=== PATIENT | male | born 1995 | race Caucasian/White ===

== ENCOUNTER 2025-06-13 18:00 | Outpatient (RCR) | payer OTHER, SELFPAY ==
--- NOTE | 2025-03-14 12:52 | HP.OTEVAL ---
Patient's Visit Information Visit Information Visit Information: SASKIA NUNES is a 29 year old M, referred to Occupational Therapy by JUSTINO WINTER, with a diagnosis of Left distal radius fracture. Date of Evaluation: 03/14/25 Occupational Therapist: Mikki Duvall Subjective Subjective: This 29 year old male arrives with dx of L distal radius fracture with surgical intervention complete ORIF 02/14/25 by [facility]. Pt with fall from bridge multi injuries which occurred on 02/07/25. Pt is R hand dominant. 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 pt has now been in pre gracy orthosis for approx 2 weeks and has been doing exercises provided to him at initial appointment. Pain L wrist: Current Pain Intensity: 5 Objective Objective/Observation: Pr arrives with L pre gracy brace on doing well no swelling noted and incision site healed ROM Shoulder: wfl Elbow: wfl Forearm: wfl Wrist: L 35/30 R 60/65 ROM Comments: able to make full composite fist able to oppose to all fingers able to supinate and pronate Strength Strength Comments: unable to assess at this time to test at later date Edema Other: none noted Sensation Sensation Comments: denies Quick DASH-Disab of Arm,Shoulder& Hand Quick DASH Score: 20.4525 Goals Goal:Daily scar massage when approriate: Yes Goal:ROM equal to unaffected hand: Yes Goal:Thread Spooler/Pinch strength at least 75% of unaffected hand: Yes Goal:No pain with affected hand use: Yes Goal:Full use of affected hand in daily activities including work: Yes Comment: quick dash Other Goal: pt will increase quick dash score by 5 points or more in order to maximize I in day to day functional tasks Rehabilitation General Assessment: This 29 year old male arrives with dx of L distal radius fracture s/p ORIF. Pt presents with limitations in ROM of wrist flex/ext. does demonstrate proepr ROM at digits as well as in pronation and supination as well as elbow and shoulder. pt with pain in wrist with movement as well as anticipated decrease in strength due to immobilization and sx. pt would benefit from OT services 3x a week for 6 weeks in order to improve ROM and strength. Rehabilitation Potential: Good Anticipated Interventions Anticipated Interventions: A/AAROM/PROM, Strengthening, Orthoses, Education re Diagnosis and Home Program Visit Plan Frequency: 3x /Week Duration: 6 Weeks General Plan: AROM/AAROM/PROM strengthening once cleared scar mobilization TEXT: Thank you for the opportunity to evaluate your patient. For Medicare and Medicare HMO plans, please review the plan of care and approve it. It will need to be FAXED BACK to us at [phone] for Medicare purposes. Please let me know if there are questions or concerns regarding this plan of care. Physician Signature: Date:
--- NOTE | 2025-05-04 10:56 | HP.PTEVAL_ITS ---
Patient's Visit Information Visit Information Visit Information: SASKIA NUNES is a 30 year old M referred to Physical Therapy by JUSTINO WINTER with a diagnosis of R femur fracture. Date of Evaluation: 05/03/25 Physical Therapist: Felipe Houston, PT, ATC Visit Plan Frequency: 2x /Week Duration: 2 Months Plan: R hip stretching and strengthening, core stab ex's, gait training, and HEP Subjective Subjective: DOI: 02/07/25. 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 Pt reports he suffered broken ribs, a broken ankle, punctured lung, and a fractured R femur. Pt reports he is doing much better now, but still has significant pain in the R femur. Pt notes he would like to be able to get back to work, but is only able to return to light duty at this time. Pt denies tingling or numbness in R LE at this time. Pt notes he has sleep difficulty at this time secondary to pain. Pt reports he has stairs that he has to negotiate, and notes he has to negotiate them one step at a time when he is carrying something. Pt reports he has sleep difficulty at this time secondary to pain. 3/10 pain while sitting here at rest, 8/10 pain at worst. Pain R hip pain: Pain Intensity (Out of 10): 3 Pain Intensity Range: 8 Objective Objective: Neuro: B LE sensation is WNL to light touch. Observation: Incision is healed. MMT: L hip flex= 29, abd= 49, add= 46; R hip flex= 28, abd= 45, add= 50 #F ROM: B LE's are equal when compared bilaterally TUG 10 sec Balance/Special Test Scores Lower Extremity Functional Score: 49 Goals Goal 1:: Decrease R hip pain x 50% to aid with sleep Goal Time Frame: 6-8 Weeks Goal 2:: Pt will be able to ambulate with no gait deviation to aid with RTW Goal Time Frame: 6-8 Weeks Goal 3:: I with HEP Goal Time Frame: 6-8 Weeks Rehabilitation Potential Physical Therapy Diagnosis: Pt has R hip pain and difficulty with ambulation secondary to R femur fracture Rehabilitation Potential: Good Anticipated Interventions Patient/Client Instruction: Educate patient on: Condition and Plan of Care For the Purpose of:: To improve self management Therapeutic Exercise to Include: Strength training, Endurance training, Balance training, Flexibilty training, Active ROM and Dynamic Lumbar Stabilization For the Purpose of:: To decrease pain, To increase ROM and To improve muscle performance and motor function Cryotherapy (ice pack, ice massage): Yes For the Purpose of:: To decrease pain Text: Thank you for the opportunity to evaluate your patient. For Medicare and Medicare HMO plans, please review the plan of care and approve it. It will need to be FAXED BACK to us at [phone] for Medicare purposes. For Medicare only, by signing this I certify the plan of care. Please let me know if there are questions or concerns regarding this plan of care. Physician Signature:_ Date:
== END 2025-06-13 19:00 | disposition home or self-care (01) ==
LOC: PT 18:00
DX: S52.572D Other intraarticular fracture of lower end of left radius, subsequent encounter for closed fracture with routine healing (principal)
CPT/HCPCS: 97110; 97140; 97161; 97166; 97530